=== PATIENT | female | born 1945 | race Caucasian/White ===

== ENCOUNTER 2016-03-16 14:04 | Emergency (ER) | payer MEDICARE, BC ==
[~2016-03-16] VITALS: Ht 160 cm; Wt 64.5 kg
[~2016-03-16 14:04] MED LIST: ASA; ASPIR-LOW81 MG PO; ASPIRIN E.C. 8181 MG PO; ATIVAN 0.50.5 MG/TAB PO; CALCIUM CITRAT200 MG PO; CARAFATE 1GM1 G PO; CELEXA20 MG PO; CENTRUM SILVER1 TA2 PO; CLONAZEPAM PO; CRANBERRY500 M3 PO; KLONOPIN 0.5MG0.5 MG PO; LITHIUM 30300 MG/CAP PO; LITHIUM CA150 MG/CAP PO; LITHIUM CARBON300 MG PO; LITHIUM8 MEQ/5 ML PO; LITHOBID; MACROBID 1100 MG/CAP PO; MELATONIN3 MG PO; MYRBETR50MG PO; PEPCID 20MG TAB20 MG; PRILOSEC 20MG20 MG PO; PRINIVIL10 MG PO; PROBIOTICA100 Milli1 PO; TEGRETOL 1100 MG/TAB PO; TYLENOL 500MG500 MG PO; VITAMIN D 1001000 IU PO; VITAMIN D5000 IU PO; prilosec PO
[2016-03-16 14:06] VITALS: TEMP 97.8
[2016-03-16 15:27] LABS: BASO % 0.4 % (0.0-2.0); EOS # 0.1 (0.0-0.7); EOS % 0.9 % (0-4.0); GRAN # 5.6 (1.4-6.5); GRAN % 67.8 % (42.2-75.2); HEMOGLOBIN 13.6 g/dl (12.5-16.0); LYMPH % 24.4 % (20.0-51.0); MEAN CELL VOLUME 90 fl (80.0-100.0); MEAN CORPUSCULAR HEMOGLOBIN 29 pg (27.0-31.0); MEAN CORPUSCULAR HGB CONC 32 g/dl (33.0-37.0); MEAN PLATELET VOLUME 9.7 fl (7.4-10.4); MONO # 0.5 (0.1-0.6); MONO % 6.4 % (1.7-9.3); PLATELET COUNT 246 K/mm3 (130-400); RED BLOOD COUNT 4.68 M/mm3 (4.10-5.30); WHITE BLOOD COUNT 8.2 K/mm3 (4.8-10.8)
[2016-03-16 15:28] LABS: PH 5 (5-8); SQUAMOUS EPITHELIAL 0-2 /hpf; URINE APPEARANCE Clear; URINE BACTERIA None Seen /hpf; URINE BILIRUBIN Negative (NEGATIVE); URINE BLOOD Negative (NEGATIVE); URINE COLOR Colorless; URINE GLUCOSE Negative (NEGATIVE); URINE KETONE Negative (NEGATIVE); URINE RBC 0-2 /hpf; URINE UROBILINOGEN Negative (NEGATIVE); URINE WBC 0-2 /hpf
[2016-03-16 15:47] LABS: ADJUSTED CALCIUM 10.5 mg/dL (8.4-10.2); ALBUMIN 4.4 gm/dL (3.5-5.0); BILIRUBIN,TOTAL 0.9 mg/dL (0.0-1.0); CALCIUM 10.8 mg/dL (8.4-10.2); CREATININE, serum 0.67 mg/dL (0.52-1.25); TOTAL PROTEIN 7.5 gm/dL (6.4-8.2)
[2016-03-16 17:10] VITALS: BP 138/69; PULSE 64
== END 2016-03-16 17:48 | disposition home or self-care (01) ==
LOC: COL.ER 14:04
PROVIDERS: Family Medicine
DX: R42 Dizziness and giddiness (principal); F41.9 Anxiety disorder, unspecified

== ENCOUNTER → 2016-03-24 | Outpatient (CLI) | payer MEDICARE, BC | LOC: BHSO 15:27 | DX: F31.81 Bipolar II disorder (principal) ==

== ENCOUNTER → 2016-04-28 | Outpatient (CLI) | payer MEDICARE, BC | LOC: BHSO 15:10 | DX: F31.81 Bipolar II disorder (principal) ==

== ENCOUNTER → 2016-06-15 | Outpatient (CLI) | payer MEDICARE, BC | LOC: BHSO 14:36 | DX: F31.73 Bipolar disorder, in partial remission, most recent episode manic (principal) ==

== ENCOUNTER → 2016-07-22 | Outpatient (CLI) | payer MEDICARE, BC | LOC: BHSO 15:19 | DX: F41.1 Generalized anxiety disorder (principal) ==

== ENCOUNTER → 2016-09-16 | Outpatient (CLI) | payer MEDICARE, BC | LOC: BHSO 13:03 | DX: F31.73 Bipolar disorder, in partial remission, most recent episode manic (principal) ==

== ENCOUNTER → 2016-11-11 | Outpatient (CLI) | payer MEDICARE, BC | LOC: BHSO 12:39 | DX: F41.1 Generalized anxiety disorder (principal) ==

== ENCOUNTER → 2017-01-01 | Outpatient (CLI) | payer MEDICARE, BC | LOC: MC.RAD 14:29 | DX: Z12.31 Encounter for screening mammogram for malignant neoplasm of breast (principal); Z90.12 Acquired absence of left breast and nipple | CPT/HCPCS: G0202 ==

== ENCOUNTER → 2017-01-06 | Outpatient (CLI) | payer MEDICARE, BC | LOC: BHSO 13:55 | DX: F41.1 Generalized anxiety disorder (principal) ==

== ENCOUNTER → 2017-02-18 | Outpatient (CLI) | payer MEDICARE, BC | LOC: BHSO 13:57 | DX: F31.73 Bipolar disorder, in partial remission, most recent episode manic (principal) ==

== ENCOUNTER → 2017-03-04 | Outpatient (CLI) | payer MEDICARE, BC ==
[~2017-03-04] VITALS: Ht 160 cm; Wt 74.2 kg
[2017-03-04 08:58] VITALS: BP 90/50; PULSE 64
== END ==
LOC: LIGHT 08:35
DX: E88.81 Metabolic syndrome and other insulin resistance (principal); E66.9 Obesity, unspecified; Z68.28 Body mass index [BMI] 28.0-28.9, adult; Z71.3 Dietary counseling and surveillance; K21.9 Gastro-esophageal reflux disease without esophagitis
CPT/HCPCS: G0463

== ENCOUNTER → 2017-03-31 | Outpatient (CLI) | payer MEDICARE, BC | LOC: BHSO 13:43 | DX: F31.73 Bipolar disorder, in partial remission, most recent episode manic (principal) | CPT/HCPCS: G0463 ==

== ENCOUNTER → 2017-06-17 | Outpatient (CLI) | payer MEDICARE, BC ==
[~2017-06-17] VITALS: Ht 160 cm; Wt 77.1 kg
[2017-06-17 08:48] VITALS: BP 110/70; PULSE 72
== END ==
LOC: LIGHT 04-15 08:52
DX: E88.81 Metabolic syndrome and other insulin resistance (principal); E66.9 Obesity, unspecified; Z68.30 Body mass index [BMI] 30.0-30.9, adult; Z71.3 Dietary counseling and surveillance; K21.9 Gastro-esophageal reflux disease without esophagitis
CPT/HCPCS: G0463

== ENCOUNTER → 2017-07-08 | Outpatient (CLI) | payer MEDICARE, BC | LOC: BHSO 13:42 | DX: F31.81 Bipolar II disorder (principal) | CPT/HCPCS: G0463 ==

== ENCOUNTER → 2017-07-29 | Outpatient (CLI) | payer MEDICARE, BC ==
[~2017-07-29] VITALS: Ht 160 cm; Wt 77.8 kg
[~2017-07-29] MED LIST changes: +DEPAKOTE 125MG125 M1
[2017-07-29 08:45] VITALS: BP 104/70; PULSE 64
== END ==
LOC: LIGHT 08:36
DX: E88.81 Metabolic syndrome and other insulin resistance (principal); E66.9 Obesity, unspecified; Z68.30 Body mass index [BMI] 30.0-30.9, adult; Z71.3 Dietary counseling and surveillance; K21.9 Gastro-esophageal reflux disease without esophagitis
CPT/HCPCS: G0463

== ENCOUNTER → 2017-09-02 | Outpatient (CLI) | payer MEDICARE, BC ==
[~2017-09-02] VITALS: Ht 160 cm; Wt 76.7 kg
[2017-09-02 13:11] VITALS: BP 110/64; PULSE 64
== END ==
LOC: LIGHT 12:41
DX: E88.81 Metabolic syndrome and other insulin resistance (principal); E66.9 Obesity, unspecified; Z68.29 Body mass index [BMI] 29.0-29.9, adult; Z71.3 Dietary counseling and surveillance; K21.9 Gastro-esophageal reflux disease without esophagitis
CPT/HCPCS: G0463

== ENCOUNTER → 2017-09-29 | Outpatient (CLI) | payer MEDICARE, BC | LOC: BHSO 13:47 | DX: F31.81 Bipolar II disorder (principal) | CPT/HCPCS: G0463 ==

== ENCOUNTER → 2017-09-30 | Outpatient (CLI) | payer MEDICARE, BC ==
[~2017-09-30] VITALS: Ht 160 cm; Wt 76.2 kg
[2017-09-30 13:43] VITALS: BP 110/68; PULSE 68
== END ==
LOC: LIGHT 13:31
DX: E88.81 Metabolic syndrome and other insulin resistance (principal); K21.9 Gastro-esophageal reflux disease without esophagitis; E66.9 Obesity, unspecified; Z68.29 Body mass index [BMI] 29.0-29.9, adult; Z71.3 Dietary counseling and surveillance
CPT/HCPCS: G0463

== ENCOUNTER → 2017-11-04 | Outpatient (CLI) | payer MEDICARE, BC ==
[~2017-11-04] VITALS: Ht 160 cm; Wt 73.7 kg
[~2017-11-04] MED LIST changes: -DEPAKOTE 125MG125 M1; +DEPAKOTE 125MG125 M1 PO
[2017-11-04 14:00] VITALS: BP 100/70; PULSE 84
== END ==
LOC: LIGHT 13:37
DX: E88.81 Metabolic syndrome and other insulin resistance (principal); K21.9 Gastro-esophageal reflux disease without esophagitis; E66.9 Obesity, unspecified; Z68.28 Body mass index [BMI] 28.0-28.9, adult; Z71.3 Dietary counseling and surveillance
CPT/HCPCS: G0463

== ENCOUNTER → 2017-12-16 | Outpatient (CLI) | payer MEDICARE, BC ==
[~2017-12-16] VITALS: Ht 160 cm; Wt 70.8 kg
[2017-12-16 13:32] VITALS: BP 112/80; PULSE 72
== END ==
LOC: LIGHT 11:39
DX: E88.81 Metabolic syndrome and other insulin resistance (principal); R73.01 Impaired fasting glucose; K21.9 Gastro-esophageal reflux disease without esophagitis; E66.9 Obesity, unspecified; Z68.27 Body mass index [BMI] 27.0-27.9, adult; Z71.3 Dietary counseling and surveillance
CPT/HCPCS: G0463

== ENCOUNTER → 2017-12-22 | Outpatient (CLI) | payer MEDICARE, BC | LOC: BHSO 13:42 | DX: F31.81 Bipolar II disorder (principal) | CPT/HCPCS: G0463 ==

== ENCOUNTER → 2018-03-30 | Outpatient (CLI) | payer MEDICARE, BC | LOC: BHSO 12:48 | DX: F31.81 Bipolar II disorder (principal) | CPT/HCPCS: G0463 ==

== ENCOUNTER → 2018-06-16 | Outpatient (CLI) | payer MEDICARE, BC ==
[~2018-06-16] VITALS: Ht 160 cm; Wt 61.2 kg
[2018-06-16 14:12] VITALS: BP 106/70; PULSE 64
== END ==
LOC: LIGHT 01-20 11:06
DX: E88.81 Metabolic syndrome and other insulin resistance (principal); R73.01 Impaired fasting glucose; K21.9 Gastro-esophageal reflux disease without esophagitis; E66.9 Obesity, unspecified; Z68.23 Body mass index [BMI] 23.0-23.9, adult; Z71.3 Dietary counseling and surveillance
CPT/HCPCS: G0463

== ENCOUNTER → 2018-08-04 | Outpatient (CLI) | payer MEDICARE, BC ==
[~2018-08-04] VITALS: Ht 160 cm; Wt 59.0 kg
[2018-08-04 12:58] VITALS: BP 102/64; PULSE 72
== END ==
LOC: LIGHT 12:57
DX: E88.81 Metabolic syndrome and other insulin resistance (principal); R73.01 Impaired fasting glucose; K21.9 Gastro-esophageal reflux disease without esophagitis; E66.9 Obesity, unspecified; Z68.23 Body mass index [BMI] 23.0-23.9, adult; Z71.3 Dietary counseling and surveillance
CPT/HCPCS: G0463

== ENCOUNTER → 2018-09-08 | Outpatient (CLI) | payer MEDICARE, BC ==
[~2018-09-08] VITALS: Ht 160 cm; Wt 60.6 kg
[2018-09-08 13:31] VITALS: BP 104/62; PULSE 72
== END ==
LOC: LIGHT 10:40
DX: E88.81 Metabolic syndrome and other insulin resistance (principal); R73.01 Impaired fasting glucose; K21.9 Gastro-esophageal reflux disease without esophagitis; E66.9 Obesity, unspecified; Z68.23 Body mass index [BMI] 23.0-23.9, adult; Z71.3 Dietary counseling and surveillance
CPT/HCPCS: G0463

== ENCOUNTER → 2018-09-21 | Outpatient (CLI) | payer MEDICARE, BC | LOC: BHSO 13:21 | DX: F31.81 Bipolar II disorder (principal) | CPT/HCPCS: G0463 ==

== ENCOUNTER → 2018-10-20 | Outpatient (CLI) | payer MEDICARE, BC ==
[~2018-10-20] VITALS: Ht 160 cm; Wt 60.6 kg
[2018-10-20 13:25] VITALS: BP 102/60; PULSE 80
== END ==
LOC: LIGHT 13:03
DX: E88.81 Metabolic syndrome and other insulin resistance (principal); R73.01 Impaired fasting glucose; K21.9 Gastro-esophageal reflux disease without esophagitis; Z68.23 Body mass index [BMI] 23.0-23.9, adult; Z71.3 Dietary counseling and surveillance
CPT/HCPCS: G0463

== ENCOUNTER → 2018-12-01 | Outpatient (CLI) | payer MEDICARE, BC ==
[~2018-12-01] VITALS: Ht 160 cm; Wt 59.4 kg
[2018-12-01 13:04] VITALS: BP 104/60; PULSE 64
== END ==
LOC: LIGHT 10:37
DX: E88.81 Metabolic syndrome and other insulin resistance (principal); R73.01 Impaired fasting glucose; K21.9 Gastro-esophageal reflux disease without esophagitis; E66.9 Obesity, unspecified; Z68.23 Body mass index [BMI] 23.0-23.9, adult; Z71.3 Dietary counseling and surveillance
CPT/HCPCS: G0463

== ENCOUNTER → 2019-03-23 | Outpatient (CLI) | payer MEDICARE, BC | LOC: BHSO 14:09 | DX: F31.81 Bipolar II disorder (principal) | CPT/HCPCS: G0463 ==

== ENCOUNTER 2019-04-25 13:15 | Outpatient (RCR) | payer MEDICARE, BC | END 2019-07-02 | disposition still patient (30) | LOC: MKS.ESL.OT | DX: M79.641 Pain in right hand (principal) ==

== ENCOUNTER → 2019-05-23 | Outpatient (CLI) | payer MEDICARE, BC | LOC: MC.RAD 03-17 13:30 | DX: Z12.31 Encounter for screening mammogram for malignant neoplasm of breast (principal); Z85.3 Personal history of malignant neoplasm of breast ==

== ENCOUNTER → 2019-11-16 | Outpatient (CLI) | payer MEDICARE, BC | LOC: BHSO 14:34 | DX: F31.81 Bipolar II disorder (principal) | CPT/HCPCS: G0463 ==

== ENCOUNTER → 2020-06-21 | Outpatient (CLI) | payer MEDICARE, BC ==
[~2020-06-21] MED LIST changes: +NORCO 325 MG-51 TAB PO
== END ==
LOC: MC.RAD 13:15
DX: Z12.31 Encounter for screening mammogram for malignant neoplasm of breast (principal); Z85.3 Personal history of malignant neoplasm of breast

== ENCOUNTER 2020-07-19 09:41 | Emergency (ER) | payer MEDICARE, BC ==
[~2020-07-19] VITALS: Ht 160 cm; Wt 61.8 kg
[~2020-07-19 09:41] MED LIST changes: -NORCO 325 MG-51 TAB PO
[2020-07-19 09:53] VITALS: TEMP 99
[2020-07-19] MEDS ORDERED: NORCO 325 MG-51 TAB PO (10:30)
[2020-07-19 10:50] VITALS: BP 152/74; PULSE 83
== END 2020-07-19 10:50 | disposition home or self-care (01) ==
LOC: COL.ER 09:41
DX: S82.831A Other fracture of upper and lower end of right fibula, initial encounter for closed fracture (principal); Z85.828 Personal history of other malignant neoplasm of skin; Z85.3 Personal history of malignant neoplasm of breast; Z88.8 Allergy status to other drugs, medicaments and biological substances; W01.0XXA Fall on same level from slipping, tripping and stumbling without subsequent striking against object, initial encounter; Y93.01 Activity, walking, marching and hiking
CPT/HCPCS: 31867; L4386

== ENCOUNTER → 2021-07-11 | Outpatient (CLI) | payer MEDICARE, BC ==
[~2021-07-11] MED LIST changes: +NORCO 325 MG-51 TAB PO
== END ==
LOC: MC.RAD 12:56
DX: Z12.31 Encounter for screening mammogram for malignant neoplasm of breast (principal); Z85.3 Personal history of malignant neoplasm of breast; Z90.12 Acquired absence of left breast and nipple

== ENCOUNTER → 2023-03-29 | Outpatient (CLI) | payer MEDICARE, BC ==
[~2023-03-29] MED LIST changes: +B COMPLEX #11 TA1 PO
== END ==
LOC: CANPRECLI → MC.RAD 09-17 13:15
DX: Z12.31 Encounter for screening mammogram for malignant neoplasm of breast (principal)

== ENCOUNTER → 2023-04-09 | Outpatient (CLI) | payer MEDICARE, BC | LOC: MC.RAD 12:52 | DX: R92.0 Mammographic microcalcification found on diagnostic imaging of breast (principal) ==

== ENCOUNTER 2023-04-12 12:46 | Outpatient (CLI) | payer MEDICARE, BC ==
[~2023-04-12] VITALS: Ht 160 cm; Wt 65.0 kg
[2023-04-12 13:03] VITALS: BP 109/75; PULSE 57; TEMP 98.4
== END 2023-04-12 13:57 ==
LOC: EUO 12:46
DX: M81.0 Age-related osteoporosis without current pathological fracture (principal)
CPT/HCPCS: J3489

== ENCOUNTER → 2023-05-10 | Outpatient (CLI) | payer MEDICARE, BC ==
[~2023-05-10] MED LIST changes: +DEPAKOTE ER 50500 MG PO; +ULTRAM 50MG TAB50 MG PO; +VITAMIN D31000 IU PO
== END ==
LOC: MC.RAD 13:00
DX: D05.11 Intraductal carcinoma in situ of right breast (principal); Z98.890 Other specified postprocedural states
CPT/HCPCS: C1769

== ENCOUNTER → 2023-11-22 | Outpatient (CLI) | payer MEDICARE, BC | LOC: MC.RAD 13:04 | DX: D05.11 Intraductal carcinoma in situ of right breast (principal); Z98.890 Other specified postprocedural states ==